=== PATIENT | male | born 1970 | race African-American/Black ===

== ENCOUNTER 2017-09-15 13:05 | Emergency (ER) | payer SELFPAY ==
[~2017-09-15] VITALS: Ht 177.8 cm; Wt 85.0 kg
[2017-09-15] MEDS ORDERED: QUET100T PO (13:12)
[2017-09-15] MEDS ORDERED: ONDANSETRON HCL 4MG/2ML VIAL IV STA (13:31)
[2017-09-15] MEDS ORDERED: SODIUM CHLORIDE 0.9% 1,000 ML IV ONE (13:31)
[2017-09-15] MEDS ORDERED: LORAZEPAM 2MG/ML CPJ IV STA (13:31)
[2017-09-15 14:14] LABS: BASOPHILS % 0.9 % (0.0-2.0); EOSINOPHILS % 2.7 % (0.0-5.0); HEMATOCRIT. 45.2 % (42.0-52.0); HEMOGLOBIN. 15.3 g/dL (14.0-18.0); LYMPHOCYTES % 29.7 % (20.0-50.0); MEAN CORPUSCULAR HEMOGLOBIN 32.9 pg (28.0-32.0); MEAN CORPUSCULAR VOLUME 97.5 fL (80.0-94.0); MEAN PLATELET VOLUME 8.4 fl (7.4-10.4); MONOCYTES % 9.2 % (2.0-8.0); NEUTROPHILS % 57.5 % (40.0-76.0); PLATELET 316 x1000/uL (130-400); RED BLOOD CELL COUNT 4.64 mill/uL (4.7-6.1); RED CELL DISTRIBUTION WIDTH 13.6 % (11.6-14.6)
[2017-09-15 14:20] LABS: CHLORIDE 106 mEq/L (98-107)
[2017-09-15 14:21] LABS: INR 1.1; PROTHROMBIN TIME 11.3 sec (9.4-11.6)
[2017-09-15 14:28] LABS: ETHANOL BLOOD < 10 mg/dL
[2017-09-15 14:31] LABS: CREATINE KINASE 407 IU/L (39-308)
[2017-09-15] MEDS ORDERED: CLONIDINE 0.2MG TABLET PO ONE (16:15)
[2017-09-15 18:59] VITALS: BP 164/89
== END 2017-09-15 19:05 | disposition home or self-care (01) ==
LOC: ER 13:05
DX: G93.49 Other encephalopathy (principal); I10 Essential (primary) hypertension; R07.89 Other chest pain
CPT/HCPCS: 36415; 70450; 71045; 80053; 80307; 80329; 82550; 83880; 84443; 84484; 85025; 85610; 93005; 99285; G0482; J7030; Z7610